=== PATIENT | male | born 1980 | race Caucasian/White ===

== ENCOUNTER 2018-10-22 04:35 | Emergency (ER) | payer OTHER, MEDICARE ==
[2018-10-22] MEDS ORDERED: NALOXONE HCL INJ 2 MG/2 ML DISP.SYRIN ONE (04:39)
[2018-10-22] MEDS ORDERED: NORMAL SALINE 1000 ML 1,000 ML IV ONE (04:46)
[2018-10-22] MEDS ORDERED: NALOXONE HCL INJ 2 MG/2 ML DISP.SYRIN IV ONE (04:47)
--- NOTE | 2018-10-22 04:50 | ER Document Report ---
ED Substance Abuse / Acc. OD - General Stated Complaint: POSSIBLE OVERDOSE Time Seen by Provider: 10/22/18 04:45 Notes: Patient is a 38 year old male that comes to the Emergency Department for chief complaint of possible overdose. EMS reports they were called to the scene of a parking lot where patient was found to be staggering, he dropped to his knees, he was very lethargic and difficult to arouse, they could not get a clear history out of him although they state he denied alcohol or recreational drugs. Friend denied any injury other than dropping to his knees, EMS denies as well. EMS has not given any medication. On initial evaluation patient is extremely lethargic, he is arousable to sternal rub and then will immediately go back to sleep. He is mumbling answers and difficult to understand. History is very limited because of patient's condition on evaluation. - Related Data Allergies/Adverse Reactions: No Known Allergies Allergy (Verified 10/22/18 06:49) Past Medical History - General Information source: Emergency Med Personnel Cannot obtain history due to: Altered mental status - Social History Smoking Status: Unknown if Ever Smoked Family History: None Review of Systems - Review of Systems Constitutional: No symptoms reported EENT: No symptoms reported Cardiovascular: See HPI Respiratory: See HPI Gastrointestinal: No symptoms reported Genitourinary: No symptoms reported Male Genitourinary: No symptoms reported Musculoskeletal: See HPI Skin: No symptoms reported Hematologic/Lymphatic: No symptoms reported Neurological/Psychological: See HPI Physical Exam - Vital signs Vitals: Resp Pulse Ox 13 85 L 10/22/18 04:38 10/22/18 04:38 - Notes Notes: GENERAL: Lethargic HEAD: Normocephalic, atraumatic. EYES: Pupils pinpoint but equal, round, and reactive to light. Extraocular movements intact. ENT: Oral mucosa moist, tongue midline. Oropharynx unremarkable. Airway patent. Nares patent, no nasal septal hematoma, TM's intact. NECK: Full range of motion. Supple. Trachea midline. LUNGS: Clear to auscultation bilaterally, no wheezes, rales, or rhonchi. No respiratory distress. HEART: Regular rate and rhythm. No murmur ABDOMEN: Soft, non-tender. Non-distended. Bowel sounds present in all 4 kleber drants. GENITOURINARY: Deferred EXTREMITIES: Moves all 4 extremities spontaneously. No edema, normal radial and dorsalis pedis pulses bilaterally. No cyanosis. Abrasions to both knees and proximal tibias with superficial injury only, no deep wound, no current bleeding, no swelling. Normal distal neurovascular exam. BACK: no cervical, thoracic, lumbar midline tenderness. No saddle anesthesia, normal distal neurovascular exam. NEUROLOGICAL: Patient sleeping, arouses to pain, does open eyes to pain, language is understandable but inappropriate. GCS initially of 10. SKIN: Warm, dry, normal turgor. No rashes or lesions noted. Course - Re-evaluation Re-evalutation: 10/22/18 04:49 On arrival patient was extremely lethargic, he would arouse to eat a loud noise or sternal rub briefly, mumble responses to questions, and then immediately going to deep sleep again. Patient was noted to have pinpoint pupils. While sleeping he would become apneic and rapidly hypoxic. Initially an NPA was placed, however when patient became somnolent again despite the NPA he would desaturate and become apneic. An IV was placed, he was given 1 mg of IV Narcan, after this patient almost immediately became arousable, patient then became al ert, conversational, introduced himself, began breathing at a normal rate, somnolence resolved. He tells me that he takes oxycodone 5 mg tablets, he tells me that he had "fireball" tonight. He denies any history of IV drug abuse. I reevaluated patient again within 30 minutes, patient remains alert and well- appearing. Patient and plan was discussed with Dr. Jimenez. 10/22/18 06:00 X-rays of the knee unremarkable, chest x-ray unremarkable, EKG sinus rhythm with no T wave inversions or ST segment changes in consecutive leads, normal QTC, normal axis. Chemistry shows mildly elevated creatinine at 1.4. Normal sodium and glucose. Alcohol is negative. I discussed with patient again, he states that his friend was drinking fireball but he did not have anything to drink tonight. Patient does state that he purchased 2 pills that he thought were Percocet from a dealer, he states he took both of them. He denies shooting up or taking anything else. Patient denies suicidal ideations. He states that he was trying to feel better because of muscle soreness from frequent working out, he is a truck body repairer. Patient denies any current complaints. Tetanus is up-to-date. Patient has been rechecked twice more. He has been here approximately 3 hours without decompensation. He has a ride here for him, he is requesting to leave. Patient expresses regret for what happened, states understanding that he almost tonight, states understanding of these extreme dangers of recreational d rugs, has no current symptoms. He states he will return if any concerning symptoms happen, he is going home with his friend who will watch him. Stable at time of discharge. - Vital Signs Vital signs: Temp Pulse Resp BP Pulse Ox 97.7 F 11 L 131/69 H 94 10/22/18 04:46 10/22/18 07:00 10/22/18 07:00 10/22/18 07:00 - Laboratory Result Diagrams: 10/22/18 04:40 Laboratory results interpreted by me: 10/22/18 04:40 Creatinine 1.40 H Est GFR (Non-Af Amer) 57 L Critical Care Note - Critical Care Note Total time excluding time spent on procedures (mins): 35 - Opiate overdose, apne a requiring Narcan Comments: Please allow 35 minutes of critical care time for management of patient with opiate overdose requiring Narcan administration for severe respiratory depression. Time spent performing multiple re-evaluations, time spent reviewing records, time spent in thorough discussion with patient. Discharge - Discharge Clinical Impression: Accidental overdose Qualifiers: Encounter type: initial encounter Qualified Code(s): T50.901A - Poisoning by unspecified drugs, medicaments and biological substances, accidental (unintentional), initial encounter Condition: Stable Disposition: HOME, SELF-CARE Additional Instructions: Do not take any substances that are not prescribed to you. Your accidental overdose was almost lethal last night. Follow-up with your primary care provider. Return for any concerning symptoms (chest pain, difficulty breathing, passing out, etc.) or something is not right. Forms: Return to Work
[2018-10-22 05:27] LABS: ANION GAP 16 (5-19); BLOOD UREA NITROGEN 19 mg/dL (7-20); CALCIUM 9.6 mg/dL (8.4-10.2); CARBON DIOXIDE 25 mmol/L (22-30); CHLORIDE 101 mmol/L (98-107); GLUCOSE 105 mg/dL (75-110); POTASSIUM 4.6 mmol/L (3.6-5.0); SODIUM 141.8 mmol/L (137-145)
[2018-10-22 05:35] LABS: ALCOHOL < 10 mg/dL (NONE DETECTED)
--- NOTE | 2018-10-22 05:35 | RADIOLOGY REPORT (SQ) ---
EXAM DESCRIPTION: XR KNEE 1-2 VIEWS BILATERAL COMPLETED DATE/TME: 10/22/2018 04:45 CLINICAL HISTORY: 38 years, Male, knee injury, pain COMPARISON: None. NUMBER OF VIEWS: Four TECHNIQUE: Two views of the bilateral knees LIMITATIONS: None. FINDINGS: There is no acute fracture or dislocation. No large soft tissue swelling. No joint effusion. No radiopaque foreign body. IMPRESSION: No acute fracture or dislocation copyright 2010 [employer]- All Rights Reserved
--- NOTE | 2018-10-22 05:41 | RADIOLOGY REPORT (SQ) ---
EXAM DESCRIPTION: XR CHEST 1 VIEW COMPLETED DATE/TME: 10/22/2018 04:45 CLINICAL HISTORY: 38 years Male, AMS COMPARISON: One day prior. NUMBER OF VIEWS/TECHNIQUE: 1/AP FINDINGS: Clear lungs of adequate volume, and normal cardiac silhouette. No pneumothorax. Stable bony thorax. IMPRESSION: No significant change.
[2018-10-22 07:15] VITALS: BP 131/69
--- NOTE | 2018-10-22 07:49 | EKG REPORT ---
SEVERITY:- NORMAL ECG - SINUS RHYTHM : Confirmed by: Rolando Kline MD 22-Oct-2018 07:49:07
== END 2018-10-22 07:15 | disposition home or self-care (01) ==
LOC: EDBD → ER 04:35
DX: T40.601A Poisoning by unspecified narcotics, accidental (unintentional), initial encounter (principal); R06.81 Apnea, not elsewhere classified; R40.0 Somnolence; Y92.481 Parking lot as the place of occurrence of the external cause; S80.212A Abrasion, left knee, initial encounter; S80.211A Abrasion, right knee, initial encounter; S80.812A Abrasion, left lower leg, initial encounter; S80.811A Abrasion, right lower leg, initial encounter; W18.39XA Other fall on same level, initial encounter
CPT/HCPCS: 93005; 99291; 96361; 96374; 36415; 80307; 80048; 71045; 73560; 93010; J2310; J7030